=== PATIENT | male | born 1970 | race Two or more races ===

== ENCOUNTER 2022-12-04 13:20 | Inpatient (IN) | payer OTHER ==
[2022-12-04 15:05] VITALS: BMI 19.9
[2022-12-04] MEDS ORDERED: MAG HYDROX/AL HYDROX/SIMETH 30 ML UNIT-DOSE CUP PO PRN (20:36)
[2022-12-04] MEDS ORDERED: MAGNESIUM HYDROX 2400MG/30ML ORAL SUSPENSION 30 ML CUP PO PRN (20:36)
[2022-12-04] MEDS ORDERED: BENZONATATE 200 MG CAPSULE PO PRN (20:36)
[2022-12-04] MEDS ORDERED: LOPERAMIDE HCL 2 MG CAPSULE PO PRN (20:36)
[2022-12-04] MEDS ORDERED: ACETAMINOPHEN 325 MG TABLET (FP) PO PRN (20:36)
[2022-12-04] MEDS ORDERED: NALOXONE HCL (KLOXXADO) 8 MG SPRAY NS PRN (20:36)
[2022-12-04] MEDS ORDERED: BENZOCAINE/MENTHOL (CHLORASEPTIC ) LOZENGE MM PRN (20:36)
[2022-12-04] MEDS ORDERED: guaiFENesin 600 MG TABLET.ER (FP) PO PRN (20:36)
[2022-12-04] MEDS ORDERED: POLYETHYLENE GLYCOL (HEALTHYLAX) 3350 17 GM PACKET PO PRN (20:36)
[2022-12-04] MEDS ORDERED: NALOXONE HCL 0.4 MG/ML VIAL IM PRN (20:36)
[2022-12-04] MEDS ORDERED: IBUPROFEN 400 MG TABLET (FP) PO PRN (20:36)
[2022-12-04] MEDS: MELATONIN 5 MG TABLETS PO SCH ×3 (21:43→21:49)
[2022-12-04] MEDS: THIAMINE HCL 100 MG TABLET (FP) PO SCH ×2 (21:43→21:49)
[2022-12-04] MEDS ORDERED: TUBERCULIN PPD 5 TU/0.1ML VIAL ID ONE (21:45)
[2022-12-05] MEDS: methaDONE HCL 40 MG DISPERSABLE TABLET PO SCH (07:42)
[2022-12-05] MEDS: PRENATAL VITAMINS W/ FOLIC ACID TABLET (FP) PO SCH (10:39)
[2022-12-05] MEDS: NICOTINE 21 MG/24 HOURS TOPICAL PATCH TD SCH (10:39)
[2022-12-05 11:10] LABS: HEMOGLOBIN 10.7 GM/dL (11.7-16.9); MCH 24.3 pg (25.7-33.7); MCHC 32.4 g/dl (32.0-35.9); MEAN PLT VOLUME 9.7 fl (7.5-11.1); PLATELET COUNT 323 10^3/uL (134-434); RBC 4.41 M/mm3 (4.00-5.60); RDW 16.9 % (11.9-15.9); WHITE BLOOD COUNT 8.8 K/mm3 (4.0-10.0)
[2022-12-05 11:11] LABS: CALCIUM 8.7 mg/dL (8.5-10.1)
[2022-12-05 11:12] LABS: ALBUMIN 3.2 g/dl (3.4-5.0); BLOOD UREA NITROGEN 15.1 mg/dL (7-18)
[2022-12-05 11:15] LABS: CREATININE 0.6 mg/dL (0.55-1.3)
[2022-12-05 11:17] LABS: BILIRUBIN,TOTAL 0.3 mg/dL (0.2-1); TOT PROT 7.7 g/dl (6.4-8.2)
[2022-12-05 11:30] LABS: PH,URINE 5.5 (5.0-8.0); URINE APPEARANCE CLEAR; URINE BILIRUBIN NEGATIVE (NEGATIVE); URINE COLOR YELLOW; URINE GLUCOSE (UA) NEGATIVE (NEGATIVE); URINE KETONE NEGATIVE (NEGATIVE); URINE LEUK ESTERASE NEGATIVE (NEGATIVE); URINE NITRITE NEGATIVE (NEGATIVE); URINE PROTEIN NEGATIVE (NEGATIVE); URINE UROBILINOGEN 0.2 mg/dL (0.2-1.0)
[2022-12-05 13:16] LABS: SYPHILIS W/ RPR CONF NON-REACTIVE (NONREACTIVE)
[2022-12-05] MEDS: MELATONIN 5 MG TABLETS PO SCH (22:02)
[2022-12-05] MEDS: THIAMINE HCL 100 MG TABLET (FP) PO SCH (22:02)
[2022-12-06] MEDS: methaDONE HCL 40 MG DISPERSABLE TABLET PO SCH (06:00)
[2022-12-06] MEDS: NICOTINE 21 MG/24 HOURS TOPICAL PATCH TD SCH (09:37)
[2022-12-06] MEDS: PRENATAL VITAMINS W/ FOLIC ACID TABLET (FP) PO SCH (09:37)
[2022-12-06] MEDS: hydrOXYzine PAMOATE 25 MG CAPSULE (FP) PO PRN (21:06)
[2022-12-06] MEDS: MELATONIN 5 MG TABLETS PO SCH (21:06)
[2022-12-06] MEDS: THIAMINE HCL 100 MG TABLET (FP) PO SCH (21:06)
[2022-12-07] MEDS: methaDONE HCL 40 MG DISPERSABLE TABLET PO SCH (05:50)
[2022-12-07] MEDS: NICOTINE POLACRILEX 2 MG GUM BC PRN (10:12)
[2022-12-07] MEDS: PRENATAL VITAMINS W/ FOLIC ACID TABLET (FP) PO SCH (10:12)
[2022-12-07] MEDS: NICOTINE 21 MG/24 HOURS TOPICAL PATCH TD SCH (10:12)
[2022-12-07] MEDS ORDERED: methaDONE HCL 10 MG TABLET PO ONE (10:55)
[2022-12-07] MEDS: MELATONIN 5 MG TABLETS PO SCH (21:05)
[2022-12-07] MEDS: THIAMINE HCL 100 MG TABLET (FP) PO SCH (21:05)
[2022-12-07] MEDS: hydrOXYzine PAMOATE 25 MG CAPSULE (FP) PO PRN (21:05)
[2022-12-08] MEDS: methaDONE 40 MG, methaDONE 10 MG PO SCH (05:59)
[2022-12-08] MEDS ORDERED: methaDONE HCL 10 MG TABLET PO SCH (06:00)
[2022-12-08] MEDS: NICOTINE POLACRILEX 2 MG GUM BC PRN (09:44)
[2022-12-08] MEDS: NICOTINE 21 MG/24 HOURS TOPICAL PATCH TD SCH (09:45)
[2022-12-08] MEDS: PRENATAL VITAMINS W/ FOLIC ACID TABLET (FP) PO SCH (09:45)
[2022-12-08] MEDS: hydrOXYzine PAMOATE 25 MG CAPSULE (FP) PO PRN (15:56)
[2022-12-08] MEDS: MELATONIN 5 MG TABLETS PO SCH (21:24)
[2022-12-08] MEDS: THIAMINE HCL 100 MG TABLET (FP) PO SCH (21:24)
[2022-12-09] MEDS: methaDONE 40 MG, methaDONE 10 MG PO SCH (06:00)
[2022-12-09] MEDS: PRENATAL VITAMINS W/ FOLIC ACID TABLET (FP) PO SCH (09:43)
[2022-12-09] MEDS: NICOTINE 21 MG/24 HOURS TOPICAL PATCH TD SCH (09:43)
[2022-12-09] MEDS: NICOTINE POLACRILEX 2 MG GUM BC PRN (09:45)
[2022-12-09] MEDS: hydrOXYzine PAMOATE 25 MG CAPSULE (FP) PO PRN (19:26)
[2022-12-09] MEDS: MELATONIN 5 MG TABLETS PO SCH (21:10)
[2022-12-09] MEDS: THIAMINE HCL 100 MG TABLET (FP) PO SCH (21:10)
[2022-12-10] MEDS ORDERED: methaDONE HCL 40 MG DISPERSABLE TABLET PO SCH (06:00)
[2022-12-10] MEDS: methaDONE 40 MG, methaDONE 20 MG PO SCH (06:07)
[2022-12-10] MEDS: PRENATAL VITAMINS W/ FOLIC ACID TABLET (FP) PO SCH (10:31)
[2022-12-10] MEDS: NICOTINE 21 MG/24 HOURS TOPICAL PATCH TD SCH (10:31)
[2022-12-10] MEDS: NICOTINE POLACRILEX 2 MG GUM BC PRN (10:32)
[2022-12-10] MEDS: hydrOXYzine PAMOATE 25 MG CAPSULE (FP) PO PRN ×2 (12:10→21:00)
[2022-12-10] MEDS: THIAMINE HCL 100 MG TABLET (FP) PO SCH (21:00)
[2022-12-10] MEDS: MELATONIN 5 MG TABLETS PO SCH (21:00)
[2022-12-11] MEDS: methaDONE 40 MG, methaDONE 20 MG PO SCH (05:55)
[2022-12-11] MEDS: hydrOXYzine PAMOATE 25 MG CAPSULE (FP) PO PRN (05:56)
[2022-12-11] MEDS: PRENATAL VITAMINS W/ FOLIC ACID TABLET (FP) PO SCH (09:45)
[2022-12-11] MEDS: NICOTINE 21 MG/24 HOURS TOPICAL PATCH TD SCH (09:46)
[2022-12-11] MEDS: NICOTINE POLACRILEX 2 MG GUM BC PRN (09:47)
[2022-12-11] MEDS: hydrOXYzine PAMOATE 50 MG CAPSULE (FP) PO PRN (16:29)
[2022-12-11] MEDS: THIAMINE HCL 100 MG TABLET (FP) PO SCH (21:37)
[2022-12-11] MEDS: SUVOREXANT 10 MG TABLET PO PRN (21:37)
[2022-12-12] MEDS: methaDONE 40 MG, methaDONE 20 MG PO SCH (05:57)
[2022-12-12] MEDS: hydrOXYzine PAMOATE 50 MG CAPSULE (FP) PO PRN ×2 (08:27→18:35)
[2022-12-12] MEDS: NICOTINE POLACRILEX 2 MG GUM BC PRN (08:29)
[2022-12-12] MEDS: NICOTINE 21 MG/24 HOURS TOPICAL PATCH TD SCH (10:20)
[2022-12-12] MEDS: PRENATAL VITAMINS W/ FOLIC ACID TABLET (FP) PO SCH (10:20)
[2022-12-12] MEDS: IBUPROFEN 600 MG TABLET (FP) PO PRN ×2 (13:04→19:31)
[2022-12-12] MEDS: THIAMINE HCL 100 MG TABLET (FP) PO SCH (21:16)
[2022-12-12] MEDS: SUVOREXANT 10 MG TABLET PO PRN (21:16)
[2022-12-13] MEDS: hydrOXYzine PAMOATE 50 MG CAPSULE (FP) PO PRN ×3 (06:08→21:06)
[2022-12-13] MEDS: methaDONE 40 MG, methaDONE 20 MG PO SCH (06:09)
[2022-12-13] MEDS: PRENATAL VITAMINS W/ FOLIC ACID TABLET (FP) PO SCH (09:41)
[2022-12-13] MEDS: NICOTINE 21 MG/24 HOURS TOPICAL PATCH TD SCH (09:41)
[2022-12-13] MEDS: NICOTINE POLACRILEX 2 MG GUM BC PRN (09:42)
[2022-12-13] MEDS: THIAMINE HCL 100 MG TABLET (FP) PO SCH (21:05)
[2022-12-13] MEDS: SUVOREXANT 10 MG TABLET PO PRN (21:06)
[2022-12-13] MEDS ORDERED: SUVOREXANT 10 MG TABLET PO PRN (22:00)
[2022-12-14] MEDS: methaDONE 40 MG, methaDONE 20 MG PO SCH (05:55)
[2022-12-14] MEDS: hydrOXYzine PAMOATE 50 MG CAPSULE (FP) PO PRN ×3 (05:57→21:09)
[2022-12-14] MEDS: PRENATAL VITAMINS W/ FOLIC ACID TABLET (FP) PO SCH (10:02)
[2022-12-14] MEDS: NICOTINE 21 MG/24 HOURS TOPICAL PATCH TD SCH (10:02)
[2022-12-14] MEDS: NICOTINE POLACRILEX 2 MG GUM BC PRN (10:02)
[2022-12-14] MEDS: SUVOREXANT 10 MG TABLET PO PRN (21:08)
[2022-12-14] MEDS: THIAMINE HCL 100 MG TABLET (FP) PO SCH (21:09)
[2022-12-15] MEDS: methaDONE 40 MG, methaDONE 20 MG PO SCH (05:58)
[2022-12-15] MEDS: hydrOXYzine PAMOATE 50 MG CAPSULE (FP) PO PRN ×2 (07:19→16:53)
[2022-12-15] MEDS: NICOTINE 21 MG/24 HOURS TOPICAL PATCH TD SCH (09:49)
[2022-12-15] MEDS: PRENATAL VITAMINS W/ FOLIC ACID TABLET (FP) PO SCH (09:49)
[2022-12-15] MEDS: NICOTINE POLACRILEX 2 MG GUM BC PRN (09:49)
[2022-12-15] MEDS: THIAMINE HCL 100 MG TABLET (FP) PO SCH (21:10)
[2022-12-15] MEDS: SUVOREXANT 10 MG TABLET PO PRN (21:11)
[2022-12-16] MEDS: hydrOXYzine PAMOATE 50 MG CAPSULE (FP) PO PRN ×3 (05:58→21:43)
[2022-12-16] MEDS: methaDONE 40 MG, methaDONE 20 MG PO SCH (05:58)
[2022-12-16] MEDS: NICOTINE 21 MG/24 HOURS TOPICAL PATCH TD SCH (09:59)
[2022-12-16] MEDS: PRENATAL VITAMINS W/ FOLIC ACID TABLET (FP) PO SCH (09:59)
[2022-12-16] MEDS: NICOTINE POLACRILEX 2 MG GUM BC PRN (10:00)
[2022-12-16] MEDS: THIAMINE HCL 100 MG TABLET (FP) PO SCH (21:06)
[2022-12-16] MEDS: SUVOREXANT 10 MG TABLET PO PRN (21:06)
[2022-12-17] MEDS: methaDONE 40 MG, methaDONE 30 MG PO SCH (05:58)
[2022-12-17] MEDS: hydrOXYzine PAMOATE 50 MG CAPSULE (FP) PO PRN ×3 (05:59→22:01)
[2022-12-17] MEDS ORDERED: methaDONE HCL 10 MG TABLET PO SCH (06:00)
[2022-12-17] MEDS: NICOTINE 21 MG/24 HOURS TOPICAL PATCH TD SCH (09:40)
[2022-12-17] MEDS: PRENATAL VITAMINS W/ FOLIC ACID TABLET (FP) PO SCH (09:40)
[2022-12-17] MEDS: NICOTINE POLACRILEX 2 MG GUM BC PRN (09:40)
[2022-12-17] MEDS ORDERED: SUVOREXANT 10 MG TABLET PO PRN (22:00)
[2022-12-17] MEDS: THIAMINE HCL 100 MG TABLET (FP) PO SCH (22:00)
[2022-12-17] MEDS: SUVOREXANT 15 MG TABLET PO PRN (22:00)
[2022-12-18] MEDS: methaDONE 40 MG, methaDONE 30 MG PO SCH (06:02)
[2022-12-18] MEDS: hydrOXYzine PAMOATE 50 MG CAPSULE (FP) PO PRN ×3 (06:03→23:10)
[2022-12-18] MEDS: NICOTINE 21 MG/24 HOURS TOPICAL PATCH TD SCH (10:14)
[2022-12-18] MEDS: PRENATAL VITAMINS W/ FOLIC ACID TABLET (FP) PO SCH (10:14)
[2022-12-18] MEDS: NICOTINE POLACRILEX 2 MG GUM BC PRN (10:15)
[2022-12-18] MEDS: SUVOREXANT 15 MG TABLET PO PRN (21:04)
[2022-12-18] MEDS: THIAMINE HCL 100 MG TABLET (FP) PO SCH (21:04)
[2022-12-19] MEDS: hydrOXYzine PAMOATE 50 MG CAPSULE (FP) PO PRN ×3 (05:42→21:20)
[2022-12-19] MEDS: methaDONE 40 MG, methaDONE 30 MG PO SCH (05:42)
[2022-12-19] MEDS: NICOTINE 21 MG/24 HOURS TOPICAL PATCH TD SCH (09:50)
[2022-12-19] MEDS: PRENATAL VITAMINS W/ FOLIC ACID TABLET (FP) PO SCH (09:50)
[2022-12-19] MEDS: NICOTINE POLACRILEX 2 MG GUM BC PRN (09:51)
[2022-12-19] MEDS: THIAMINE HCL 100 MG TABLET (FP) PO SCH (21:19)
[2022-12-19] MEDS: SUVOREXANT 15 MG TABLET PO PRN (21:20)
[2022-12-20] MEDS: methaDONE 40 MG, methaDONE 30 MG PO SCH (06:17)
[2022-12-20] MEDS: hydrOXYzine PAMOATE 50 MG CAPSULE (FP) PO PRN ×3 (06:18→21:59)
[2022-12-20] MEDS: PRENATAL VITAMINS W/ FOLIC ACID TABLET (FP) PO SCH (10:13)
[2022-12-20] MEDS: NICOTINE 21 MG/24 HOURS TOPICAL PATCH TD SCH (10:13)
[2022-12-20] MEDS: NICOTINE POLACRILEX 2 MG GUM BC PRN (10:13)
[2022-12-20] MEDS: SUVOREXANT 15 MG TABLET PO PRN (21:06)
[2022-12-20] MEDS: THIAMINE HCL 100 MG TABLET (FP) PO SCH (21:06)
[2022-12-21] MEDS: methaDONE 40 MG, methaDONE 30 MG PO SCH (06:21)
[2022-12-21] MEDS: hydrOXYzine PAMOATE 50 MG CAPSULE (FP) PO PRN ×3 (06:23→21:32)
[2022-12-21] MEDS: PRENATAL VITAMINS W/ FOLIC ACID TABLET (FP) PO SCH (09:53)
[2022-12-21] MEDS: NICOTINE 21 MG/24 HOURS TOPICAL PATCH TD SCH (09:53)
[2022-12-21] MEDS: THIAMINE HCL 100 MG TABLET (FP) PO SCH (21:31)
[2022-12-21] MEDS: SUVOREXANT 15 MG TABLET PO PRN (22:41)
[2022-12-22] MEDS: methaDONE 40 MG, methaDONE 30 MG PO SCH (06:16)
[2022-12-22] MEDS: hydrOXYzine PAMOATE 50 MG CAPSULE (FP) PO PRN ×3 (06:17→23:14)
[2022-12-22] MEDS: NICOTINE 21 MG/24 HOURS TOPICAL PATCH TD SCH (09:38)
[2022-12-22] MEDS: PRENATAL VITAMINS W/ FOLIC ACID TABLET (FP) PO SCH (09:38)
[2022-12-22] MEDS: NICOTINE POLACRILEX 2 MG GUM BC PRN (09:39)
[2022-12-22] MEDS: THIAMINE HCL 100 MG TABLET (FP) PO SCH (21:12)
[2022-12-22] MEDS: SUVOREXANT 15 MG TABLET PO PRN (21:12)
[2022-12-23] MEDS: hydrOXYzine PAMOATE 50 MG CAPSULE (FP) PO PRN ×3 (05:54→22:22)
[2022-12-23] MEDS: methaDONE 40 MG, methaDONE 30 MG PO SCH (05:54)
[2022-12-23] MEDS: NICOTINE POLACRILEX 2 MG GUM BC PRN (09:35)
[2022-12-23] MEDS: NICOTINE 21 MG/24 HOURS TOPICAL PATCH TD SCH (09:35)
[2022-12-23] MEDS: PRENATAL VITAMINS W/ FOLIC ACID TABLET (FP) PO SCH (09:35)
[2022-12-23] MEDS: THIAMINE HCL 100 MG TABLET (FP) PO SCH (21:15)
[2022-12-23] MEDS: SUVOREXANT 15 MG TABLET PO PRN (21:16)
[2022-12-24] MEDS: hydrOXYzine PAMOATE 50 MG CAPSULE (FP) PO PRN ×3 (06:06→22:37)
[2022-12-24] MEDS: methaDONE 40 MG, methaDONE 30 MG PO SCH (06:06)
[2022-12-24] MEDS: NICOTINE 21 MG/24 HOURS TOPICAL PATCH TD SCH (10:37)
[2022-12-24] MEDS: PRENATAL VITAMINS W/ FOLIC ACID TABLET (FP) PO SCH (10:37)
[2022-12-24] MEDS: NICOTINE POLACRILEX 2 MG GUM BC PRN (10:38)
[2022-12-24] MEDS: THIAMINE HCL 100 MG TABLET (FP) PO SCH (21:34)
[2022-12-24] MEDS: QUEtiapine FUMARATE 50 MG TABLET PO PRN (21:34)
[2022-12-25] MEDS: methaDONE 40 MG, methaDONE 30 MG PO SCH (06:21)
[2022-12-25] MEDS: hydrOXYzine PAMOATE 50 MG CAPSULE (FP) PO PRN ×3 (06:22→21:04)
[2022-12-25] MEDS: PRENATAL VITAMINS W/ FOLIC ACID TABLET (FP) PO SCH (09:50)
[2022-12-25] MEDS: NICOTINE 21 MG/24 HOURS TOPICAL PATCH TD SCH (09:50)
[2022-12-25] MEDS: IBUPROFEN 600 MG TABLET (FP) PO PRN (09:52)
[2022-12-25] MEDS: THIAMINE HCL 100 MG TABLET (FP) PO SCH (21:03)
[2022-12-25] MEDS: QUEtiapine FUMARATE 50 MG TABLET PO PRN (21:04)
[2022-12-26] MEDS: methaDONE 40 MG, methaDONE 30 MG PO SCH (06:03)
[2022-12-26] MEDS: hydrOXYzine PAMOATE 50 MG CAPSULE (FP) PO PRN ×3 (06:03→21:06)
[2022-12-26] MEDS: PRENATAL VITAMINS W/ FOLIC ACID TABLET (FP) PO SCH (10:17)
[2022-12-26] MEDS: NICOTINE 21 MG/24 HOURS TOPICAL PATCH TD SCH (10:17)
[2022-12-26] MEDS: NICOTINE POLACRILEX 2 MG GUM BC PRN (10:17)
[2022-12-26] MEDS: THIAMINE HCL 100 MG TABLET (FP) PO SCH (21:05)
[2022-12-26] MEDS: QUEtiapine FUMARATE 50 MG TABLET PO PRN (21:06)
[2022-12-27] MEDS: methaDONE 40 MG, methaDONE 30 MG PO SCH (06:19)
[2022-12-27] MEDS: hydrOXYzine PAMOATE 50 MG CAPSULE (FP) PO PRN ×3 (06:20→21:25)
[2022-12-27] MEDS: PRENATAL VITAMINS W/ FOLIC ACID TABLET (FP) PO SCH (09:34)
[2022-12-27] MEDS: NICOTINE 21 MG/24 HOURS TOPICAL PATCH TD SCH (09:34)
[2022-12-27] MEDS: IBUPROFEN 600 MG TABLET (FP) PO PRN (13:18)
[2022-12-27] MEDS: THIAMINE HCL 100 MG TABLET (FP) PO SCH (21:24)
[2022-12-27] MEDS: QUEtiapine FUMARATE 50 MG TABLET PO PRN (21:24)
[2022-12-28] MEDS: methaDONE 40 MG, methaDONE 30 MG PO SCH (06:32)
[2022-12-28] MEDS: hydrOXYzine PAMOATE 50 MG CAPSULE (FP) PO PRN ×3 (06:34→21:37)
[2022-12-28] MEDS: NICOTINE 21 MG/24 HOURS TOPICAL PATCH TD SCH (10:14)
[2022-12-28] MEDS: PRENATAL VITAMINS W/ FOLIC ACID TABLET (FP) PO SCH (10:14)
[2022-12-28] MEDS: NICOTINE POLACRILEX 2 MG GUM BC PRN (10:15)
[2022-12-28 11:48] LABS: CALCIUM 8.9 mg/dL (8.5-10.1)
[2022-12-28 11:49] LABS: BLOOD UREA NITROGEN 17.6 mg/dL (7-18)
[2022-12-28 11:52] LABS: CREATININE 0.7 mg/dL (0.55-1.3)
[2022-12-28] MEDS: THIAMINE HCL 100 MG TABLET (FP) PO SCH (21:37)
[2022-12-28] MEDS: QUEtiapine FUMARATE 50 MG TABLET PO PRN (21:37)
[2022-12-29] MEDS: methaDONE 40 MG, methaDONE 30 MG PO SCH (06:32)
[2022-12-29] MEDS: hydrOXYzine PAMOATE 50 MG CAPSULE (FP) PO PRN ×3 (06:35→21:28)
[2022-12-29] MEDS: NICOTINE POLACRILEX 2 MG GUM BC PRN (09:47)
[2022-12-29] MEDS: PRENATAL VITAMINS W/ FOLIC ACID TABLET (FP) PO SCH (09:47)
[2022-12-29] MEDS: NICOTINE 21 MG/24 HOURS TOPICAL PATCH TD SCH (09:47)
[2022-12-29] MEDS: THIAMINE HCL 100 MG TABLET (FP) PO SCH (21:28)
[2022-12-29] MEDS: SUVOREXANT 15 MG TABLET PO PRN (21:29)
[2022-12-30] MEDS: hydrOXYzine PAMOATE 50 MG CAPSULE (FP) PO PRN ×3 (06:25→21:09)
[2022-12-30] MEDS: methaDONE 40 MG, methaDONE 30 MG PO SCH (06:25)
[2022-12-30 07:14] VITALS: RESP 18
[2022-12-30] MEDS: PRENATAL VITAMINS W/ FOLIC ACID TABLET (FP) PO SCH (10:15)
[2022-12-30] MEDS: NICOTINE 21 MG/24 HOURS TOPICAL PATCH TD SCH (10:15)
[2022-12-30] MEDS: THIAMINE HCL 100 MG TABLET (FP) PO SCH (21:09)
[2022-12-30] MEDS: SUVOREXANT 15 MG TABLET PO PRN (21:09)
[2022-12-31 06:26] VITALS: BP 108/64; PULSE 70; TEMP 97.7
[2022-12-31] MEDS: hydrOXYzine PAMOATE 50 MG CAPSULE (FP) PO PRN (06:26)
[2022-12-31] MEDS: methaDONE 40 MG, methaDONE 30 MG PO SCH (06:26)
[2022-12-31] MEDS: NICOTINE 21 MG/24 HOURS TOPICAL PATCH TD SCH (09:08)
[2022-12-31] MEDS: PRENATAL VITAMINS W/ FOLIC ACID TABLET (FP) PO SCH (09:08)
== END 2022-12-31 09:10 | disposition home or self-care (01) | DRG 772 ==
LOC: YASAS 13:20 → Y3W 20:46
PROVIDERS: ADMIT Allergy & Immunology; ATTEND Psychiatry & Neurology Pain Medicine
PROC: HZ42ZZZ Group Counseling for Substance Abuse Treatment, Cognitive-Behavioral (ICD-10-PCS; principal; 2022-12-04)
DX: F14.20 Cocaine dependence, uncomplicated (principal); F11.20 Opioid dependence, uncomplicated; F12.20 Cannabis dependence, uncomplicated; F17.210 Nicotine dependence, cigarettes, uncomplicated; F19.282 Other psychoactive substance dependence with psychoactive substance-induced sleep disorder; F19.280 Other psychoactive substance dependence with psychoactive substance-induced anxiety disorder; F19.24 Other psychoactive substance dependence with psychoactive substance-induced mood disorder; B18.2 Chronic viral hepatitis C; M54.50 Low back pain, unspecified; G89.29 Other chronic pain; R60.0 Localized edema; Z99.89 Dependence on other enabling machines and devices
CPT/HCPCS: 36415; 80048; 80053; 81003; 85027; 86780; 86803; 87522; 87811; 93005; 93010; C9803-CS; U0003; U0005

== ENCOUNTER 2023-08-10 17:49 | Inpatient (IN) | payer OTHER ==
[2023-08-10 18:33] VITALS: BMI 18.9
[2023-08-10] MEDS ORDERED: MAGNESIUM HYDROX 2400MG/30ML ORAL SUSPENSION 30 ML CUP PO PRN (20:09)
[2023-08-10] MEDS ORDERED: COLLOIDAL OATMEAL 1 BAR EACH TP PRN (20:09)
[2023-08-10] MEDS ORDERED: LOPERAMIDE HCL 2 MG CAPSULE PO PRN (20:09)
[2023-08-10] MEDS ORDERED: guaiFENesin 600 MG TABLET.ER (FP) PO PRN (20:09)
[2023-08-10] MEDS ORDERED: NALOXONE HCL (KLOXXADO) 8 MG SPRAY NS PRN (20:09)
[2023-08-10] MEDS ORDERED: AMMONIUM LACTATE 12% LOTION 225 GM BOTTLE TP PRN (20:09)
[2023-08-10] MEDS ORDERED: MAG HYDROX/AL HYDROX/SIMETH 30 ML UNIT-DOSE CUP PO PRN (20:09)
[2023-08-10] MEDS ORDERED: POLYETHYLENE GLYCOL (HEALTHYLAX) 3350 17 GM PACKET PO PRN (20:09)
[2023-08-10] MEDS ORDERED: NALOXONE HCL 0.4 MG/ML VIAL IM PRN (20:09)
[2023-08-10] MEDS ORDERED: IBUPROFEN 400 MG TABLET (FP) PO PRN (20:09)
[2023-08-10] MEDS ORDERED: ACETAMINOPHEN 325 MG TABLET (FP) PO PRN (20:09)
[2023-08-10] MEDS ORDERED: BENZOCAINE/MENTHOL (CHLORASEPTIC ) LOZENGE MM PRN (20:09)
[2023-08-10] MEDS ORDERED: BENZONATATE 200 MG CAPSULE PO PRN (20:09)
[2023-08-11] MEDS: MELATONIN 5 MG TABLETS PO SCH ×2 (00:05→21:14)
[2023-08-11] MEDS: THIAMINE HCL 100 MG TABLET (FP) PO SCH ×2 (00:05→21:14)
[2023-08-11] MEDS ORDERED: ONDANSETRON *ODT* 4 MG TABLET SL ONE (07:21)
[2023-08-11] MEDS ORDERED: methaDONE HCL 10 MG TABLET PO SCH (09:00)
[2023-08-11] MEDS: NICOTINE 21 MG/24 HOURS TOPICAL PATCH TD SCH (10:30)
[2023-08-11] MEDS: PRENATAL VITAMINS W/ FOLIC ACID TABLET (FP) PO SCH (10:30)
[2023-08-11 13:30] LABS: URINE APPEARANCE CLEAR; URINE BILIRUBIN NEGATIVE (NEGATIVE); URINE COLOR YELLOW; URINE GLUCOSE (UA) NEGATIVE (NEGATIVE); URINE KETONE NEGATIVE (NEGATIVE); URINE LEUK ESTERASE NEGATIVE (NEGATIVE); URINE NITRITE NEGATIVE (NEGATIVE); URINE PROTEIN NEGATIVE (NEGATIVE)
[2023-08-12] MEDS: PRENATAL VITAMINS W/ FOLIC ACID TABLET (FP) PO SCH (10:41)
[2023-08-12] MEDS: NICOTINE 21 MG/24 HOURS TOPICAL PATCH TD SCH (10:41)
[2023-08-12 16:32] LABS: BASO % 0.3 % (0-2.0); EOS % 2.4 % (0-4.5); HEMATOCRIT 37.7 % (35.4-49); HEMOGLOBIN 12.4 GM/dL (11.7-16.9); LYMPH % 18.6 % (8-40); MCH 25.5 pg (25.7-33.7); MEAN CELL VOLUME 77.3 fl (80-96); MONO % 6.8 % (3.8-10.2); NEUT % 71.9 % (42.8-82.8); PLATELET COUNT 275 10^3/uL (134-434); RBC 4.88 M/mm3 (4.00-5.60); RDW 15.3 % (11.9-15.9)
[2023-08-12 16:33] LABS: POTASSIUM 4.2 mmol/L (3.5-5.1)
[2023-08-12 16:36] LABS: CALCIUM 8.9 mg/dL (8.5-10.1)
[2023-08-12 16:37] LABS: ALBUMIN 3.1 g/dl (3.4-5.0); BLOOD UREA NITROGEN 8.6 mg/dL (7-18)
[2023-08-12 16:40] LABS: CREATININE 0.7 mg/dL (0.55-1.3)
[2023-08-12 16:41] LABS: BILIRUBIN,TOTAL 0.6 mg/dL (0.2-1)
[2023-08-12] MEDS: THIAMINE HCL 100 MG TABLET (FP) PO SCH (21:18)
[2023-08-12] MEDS: MELATONIN 5 MG TABLETS PO SCH (21:18)
[2023-08-12] MEDS: QUEtiapine FUMARATE 100 MG TABLET (FP) PO SCH (21:18)
[2023-08-13] MEDS: NICOTINE 21 MG/24 HOURS TOPICAL PATCH TD SCH (10:05)
[2023-08-13] MEDS: PRENATAL VITAMINS W/ FOLIC ACID TABLET (FP) PO SCH (10:05)
[2023-08-13] MEDS: IBUPROFEN 600 MG TABLET (FP) PO PRN (13:05)
[2023-08-13] MEDS: MELATONIN 5 MG TABLETS PO SCH (21:06)
[2023-08-13] MEDS: QUEtiapine FUMARATE 100 MG TABLET (FP) PO SCH (21:06)
[2023-08-13] MEDS: THIAMINE HCL 100 MG TABLET (FP) PO SCH (21:06)
[2023-08-14] MEDS: NICOTINE 21 MG/24 HOURS TOPICAL PATCH TD SCH (10:07)
[2023-08-14] MEDS: PRENATAL VITAMINS W/ FOLIC ACID TABLET (FP) PO SCH (10:07)
[2023-08-14] MEDS: IBUPROFEN 600 MG TABLET (FP) PO PRN (13:15)
[2023-08-14] MEDS: QUEtiapine FUMARATE 100 MG TABLET (FP) PO SCH (21:05)
[2023-08-14] MEDS: MELATONIN 5 MG TABLETS PO SCH (21:05)
[2023-08-14] MEDS: THIAMINE HCL 100 MG TABLET (FP) PO SCH (21:05)
[2023-08-15] MEDS: PRENATAL VITAMINS W/ FOLIC ACID TABLET (FP) PO SCH (10:09)
[2023-08-15] MEDS: NICOTINE 21 MG/24 HOURS TOPICAL PATCH TD SCH (10:09)
[2023-08-15] MEDS: MELATONIN 5 MG TABLETS PO SCH (21:14)
[2023-08-15] MEDS: THIAMINE HCL 100 MG TABLET (FP) PO SCH (21:15)
[2023-08-15] MEDS: QUEtiapine FUMARATE 100 MG TABLET (FP) PO SCH (21:15)
[2023-08-15] MEDS: NICOTINE POLACRILEX 2 MG GUM BUC PRN (21:16)
[2023-08-16] MEDS: PRENATAL VITAMINS W/ FOLIC ACID TABLET (FP) PO SCH (10:04)
[2023-08-16] MEDS: NICOTINE 21 MG/24 HOURS TOPICAL PATCH TD SCH (10:04)
[2023-08-16] MEDS: hydrOXYzine PAMOATE 25 MG CAPSULE (FP) PO PRN ×2 (10:05→21:13)
[2023-08-16] MEDS: THIAMINE HCL 100 MG TABLET (FP) PO SCH (21:13)
[2023-08-16] MEDS: QUEtiapine FUMARATE 100 MG TABLET (FP) PO SCH (21:13)
[2023-08-16] MEDS: MELATONIN 5 MG TABLETS PO SCH (21:13)
[2023-08-17] MEDS: hydrOXYzine PAMOATE 25 MG CAPSULE (FP) PO PRN ×2 (05:56→21:20)
[2023-08-17] MEDS: PRENATAL VITAMINS W/ FOLIC ACID TABLET (FP) PO SCH (10:12)
[2023-08-17] MEDS: NICOTINE 21 MG/24 HOURS TOPICAL PATCH TD SCH (10:12)
[2023-08-17] MEDS: THIAMINE HCL 100 MG TABLET (FP) PO SCH (21:19)
[2023-08-17] MEDS: MELATONIN 5 MG TABLETS PO SCH (21:19)
[2023-08-17] MEDS: QUEtiapine FUMARATE 100 MG TABLET (FP) PO SCH (21:20)
[2023-08-18] MEDS: hydrOXYzine PAMOATE 25 MG CAPSULE (FP) PO PRN ×2 (06:25→21:09)
[2023-08-18] MEDS: PRENATAL VITAMINS W/ FOLIC ACID TABLET (FP) PO SCH (10:23)
[2023-08-18] MEDS: NICOTINE 21 MG/24 HOURS TOPICAL PATCH TD SCH (10:23)
[2023-08-18] MEDS: MELATONIN 5 MG TABLETS PO SCH (21:08)
[2023-08-18] MEDS: QUEtiapine FUMARATE 100 MG TABLET (FP) PO SCH (21:08)
[2023-08-18] MEDS: THIAMINE HCL 100 MG TABLET (FP) PO SCH (21:08)
[2023-08-19] MEDS: hydrOXYzine PAMOATE 25 MG CAPSULE (FP) PO PRN ×2 (06:02→21:16)
[2023-08-19] MEDS: NICOTINE POLACRILEX 2 MG GUM BUC PRN (09:48)
[2023-08-19] MEDS: NICOTINE 21 MG/24 HOURS TOPICAL PATCH TD SCH (09:48)
[2023-08-19] MEDS: PRENATAL VITAMINS W/ FOLIC ACID TABLET (FP) PO SCH (09:48)
[2023-08-19] MEDS: QUEtiapine FUMARATE 200 MG TABLET PO SCH (21:16)
[2023-08-19] MEDS: THIAMINE HCL 100 MG TABLET (FP) PO SCH (21:16)
[2023-08-19] MEDS: MELATONIN 5 MG TABLETS PO SCH (21:16)
[2023-08-20] MEDS: hydrOXYzine PAMOATE 25 MG CAPSULE (FP) PO PRN ×2 (06:32→21:11)
[2023-08-20] MEDS: PRENATAL VITAMINS W/ FOLIC ACID TABLET (FP) PO SCH (09:36)
[2023-08-20] MEDS: NICOTINE 21 MG/24 HOURS TOPICAL PATCH TD SCH (09:37)
[2023-08-20] MEDS: QUEtiapine FUMARATE 200 MG TABLET PO SCH (21:11)
[2023-08-20] MEDS: MELATONIN 5 MG TABLETS PO SCH (21:11)
[2023-08-20] MEDS: THIAMINE HCL 100 MG TABLET (FP) PO SCH (21:11)
[2023-08-21] MEDS: hydrOXYzine PAMOATE 25 MG CAPSULE (FP) PO PRN ×2 (06:00→21:15)
[2023-08-21] MEDS: NICOTINE 21 MG/24 HOURS TOPICAL PATCH TD SCH (10:06)
[2023-08-21] MEDS: PRENATAL VITAMINS W/ FOLIC ACID TABLET (FP) PO SCH (10:07)
[2023-08-21] MEDS: QUEtiapine FUMARATE 200 MG TABLET PO SCH (21:15)
[2023-08-21] MEDS: THIAMINE HCL 100 MG TABLET (FP) PO SCH (21:15)
[2023-08-21] MEDS: MELATONIN 5 MG TABLETS PO SCH (21:15)
[2023-08-22] MEDS: hydrOXYzine PAMOATE 25 MG CAPSULE (FP) PO PRN ×2 (06:06→21:01)
[2023-08-22] MEDS: PRENATAL VITAMINS W/ FOLIC ACID TABLET (FP) PO SCH (09:51)
[2023-08-22] MEDS: NICOTINE 21 MG/24 HOURS TOPICAL PATCH TD SCH (09:52)
[2023-08-22] MEDS: THIAMINE HCL 100 MG TABLET (FP) PO SCH (21:01)
[2023-08-22] MEDS: QUEtiapine FUMARATE 200 MG TABLET PO SCH (21:01)
[2023-08-22] MEDS: MELATONIN 5 MG TABLETS PO SCH (21:01)
[2023-08-23] MEDS: hydrOXYzine PAMOATE 25 MG CAPSULE (FP) PO PRN ×2 (06:06→21:27)
[2023-08-23] MEDS: NICOTINE 21 MG/24 HOURS TOPICAL PATCH TD SCH (10:44)
[2023-08-23] MEDS: PRENATAL VITAMINS W/ FOLIC ACID TABLET (FP) PO SCH (10:44)
[2023-08-23] MEDS: QUEtiapine FUMARATE 200 MG TABLET PO SCH (21:26)
[2023-08-23] MEDS: SUVOREXANT 10 MG TABLET PO PRN (21:26)
[2023-08-23] MEDS: THIAMINE HCL 100 MG TABLET (FP) PO SCH (21:26)
[2023-08-24] MEDS: hydrOXYzine PAMOATE 25 MG CAPSULE (FP) PO PRN ×2 (06:17→21:21)
[2023-08-24] MEDS: NICOTINE 21 MG/24 HOURS TOPICAL PATCH TD SCH ×2 (10:35→10:44)
[2023-08-24] MEDS: PRENATAL VITAMINS W/ FOLIC ACID TABLET (FP) PO SCH ×2 (10:36→10:44)
[2023-08-24] MEDS: THIAMINE HCL 100 MG TABLET (FP) PO SCH (21:21)
[2023-08-24] MEDS: SUVOREXANT 10 MG TABLET PO PRN (21:21)
[2023-08-24] MEDS: QUEtiapine FUMARATE 200 MG TABLET PO SCH (21:21)
[2023-08-25] MEDS: hydrOXYzine PAMOATE 25 MG CAPSULE (FP) PO PRN ×2 (06:04→21:14)
[2023-08-25] MEDS: PRENATAL VITAMINS W/ FOLIC ACID TABLET (FP) PO SCH (10:05)
[2023-08-25] MEDS: NICOTINE 21 MG/24 HOURS TOPICAL PATCH TD SCH (10:05)
[2023-08-25] MEDS: SUVOREXANT 10 MG TABLET PO PRN (21:13)
[2023-08-25] MEDS: THIAMINE HCL 100 MG TABLET (FP) PO SCH (21:14)
[2023-08-25] MEDS: QUEtiapine FUMARATE 200 MG TABLET PO SCH (21:14)
[2023-08-26] MEDS: hydrOXYzine PAMOATE 25 MG CAPSULE (FP) PO PRN ×2 (05:53→21:04)
[2023-08-26] MEDS: PRENATAL VITAMINS W/ FOLIC ACID TABLET (FP) PO SCH (10:09)
[2023-08-26] MEDS: NICOTINE 21 MG/24 HOURS TOPICAL PATCH TD SCH (10:10)
[2023-08-26] MEDS: THIAMINE HCL 100 MG TABLET (FP) PO SCH (21:03)
[2023-08-26] MEDS: SUVOREXANT 10 MG TABLET PO PRN (21:03)
[2023-08-26] MEDS: QUEtiapine FUMARATE 200 MG TABLET PO SCH (21:04)
[2023-08-27] MEDS: hydrOXYzine PAMOATE 25 MG CAPSULE (FP) PO PRN ×2 (06:11→21:17)
[2023-08-27] MEDS: NICOTINE 21 MG/24 HOURS TOPICAL PATCH TD SCH (10:08)
[2023-08-27] MEDS: PRENATAL VITAMINS W/ FOLIC ACID TABLET (FP) PO SCH (10:08)
[2023-08-27] MEDS: QUEtiapine FUMARATE 200 MG TABLET PO SCH (21:17)
[2023-08-27] MEDS: THIAMINE HCL 100 MG TABLET (FP) PO SCH (21:17)
[2023-08-27] MEDS: SUVOREXANT 10 MG TABLET PO PRN (21:18)
[2023-08-28] MEDS: PRENATAL VITAMINS W/ FOLIC ACID TABLET (FP) PO SCH (10:13)
[2023-08-28] MEDS: NICOTINE 21 MG/24 HOURS TOPICAL PATCH TD SCH (10:13)
[2023-08-28] MEDS: hydrOXYzine PAMOATE 25 MG CAPSULE (FP) PO PRN ×2 (12:16→21:27)
[2023-08-28] MEDS: THIAMINE HCL 100 MG TABLET (FP) PO SCH (21:27)
[2023-08-28] MEDS: QUEtiapine FUMARATE 200 MG TABLET PO SCH (21:27)
[2023-08-28] MEDS: SUVOREXANT 10 MG TABLET PO PRN (21:27)
[2023-08-28] MEDS ORDERED: SUVOREXANT 10 MG TABLET PO PRN (22:00)
[2023-08-29] MEDS: PRENATAL VITAMINS W/ FOLIC ACID TABLET (FP) PO SCH (09:35)
[2023-08-29] MEDS: NICOTINE 21 MG/24 HOURS TOPICAL PATCH TD SCH (09:36)
[2023-08-29] MEDS: hydrOXYzine PAMOATE 25 MG CAPSULE (FP) PO PRN ×2 (14:23→21:30)
[2023-08-29] MEDS: SUVOREXANT 10 MG TABLET PO PRN (21:29)
[2023-08-29] MEDS: THIAMINE HCL 100 MG TABLET (FP) PO SCH (21:29)
[2023-08-29] MEDS: QUEtiapine FUMARATE 200 MG TABLET PO SCH (21:30)
[2023-08-30] MEDS: hydrOXYzine PAMOATE 25 MG CAPSULE (FP) PO PRN ×2 (06:29→21:03)
[2023-08-30] MEDS: NICOTINE 21 MG/24 HOURS TOPICAL PATCH TD SCH (10:12)
[2023-08-30] MEDS: PRENATAL VITAMINS W/ FOLIC ACID TABLET (FP) PO SCH (10:12)
[2023-08-30] MEDS: QUEtiapine FUMARATE 200 MG TABLET PO SCH (21:02)
[2023-08-30] MEDS: THIAMINE HCL 100 MG TABLET (FP) PO SCH (21:02)
[2023-08-30] MEDS: SUVOREXANT 10 MG TABLET PO PRN (21:03)
[2023-08-31] MEDS: hydrOXYzine PAMOATE 25 MG CAPSULE (FP) PO PRN ×2 (06:23→21:33)
[2023-08-31] MEDS: NICOTINE 21 MG/24 HOURS TOPICAL PATCH TD SCH (10:16)
[2023-08-31] MEDS: PRENATAL VITAMINS W/ FOLIC ACID TABLET (FP) PO SCH (10:16)
[2023-08-31] MEDS: THIAMINE HCL 100 MG TABLET (FP) PO SCH (21:32)
[2023-08-31] MEDS: QUEtiapine FUMARATE 200 MG TABLET PO SCH (21:33)
[2023-08-31] MEDS: SUVOREXANT 10 MG TABLET PO PRN (21:33)
[2023-09-01] MEDS: hydrOXYzine PAMOATE 25 MG CAPSULE (FP) PO PRN ×2 (06:18→21:11)
[2023-09-01] MEDS: NICOTINE 21 MG/24 HOURS TOPICAL PATCH TD SCH (10:54)
[2023-09-01] MEDS: PRENATAL VITAMINS W/ FOLIC ACID TABLET (FP) PO SCH (10:54)
[2023-09-01] MEDS: SUVOREXANT 10 MG TABLET PO PRN (21:10)
[2023-09-01] MEDS: QUEtiapine FUMARATE 200 MG TABLET PO SCH (21:10)
[2023-09-01] MEDS: THIAMINE HCL 100 MG TABLET (FP) PO SCH (21:11)
[2023-09-02] MEDS: hydrOXYzine PAMOATE 25 MG CAPSULE (FP) PO PRN ×2 (06:43→21:15)
[2023-09-02] MEDS: NICOTINE 21 MG/24 HOURS TOPICAL PATCH TD SCH (09:49)
[2023-09-02] MEDS: PRENATAL VITAMINS W/ FOLIC ACID TABLET (FP) PO SCH (09:49)
[2023-09-02] MEDS: QUEtiapine FUMARATE 200 MG TABLET PO SCH (21:15)
[2023-09-02] MEDS: SUVOREXANT 10 MG TABLET PO PRN (21:15)
[2023-09-02] MEDS: THIAMINE HCL 100 MG TABLET (FP) PO SCH (21:15)
[2023-09-03] MEDS: hydrOXYzine PAMOATE 25 MG CAPSULE (FP) PO PRN ×2 (06:21→21:29)
[2023-09-03] MEDS: PRENATAL VITAMINS W/ FOLIC ACID TABLET (FP) PO SCH (09:48)
[2023-09-03] MEDS: NICOTINE 21 MG/24 HOURS TOPICAL PATCH TD SCH (09:48)
[2023-09-03] MEDS: THIAMINE HCL 100 MG TABLET (FP) PO SCH (21:29)
[2023-09-03] MEDS: QUEtiapine FUMARATE 200 MG TABLET PO SCH (21:29)
[2023-09-03] MEDS: SUVOREXANT 10 MG TABLET PO PRN (21:29)
[2023-09-04] MEDS: hydrOXYzine PAMOATE 25 MG CAPSULE (FP) PO PRN ×2 (06:28→21:02)
[2023-09-04] MEDS: PRENATAL VITAMINS W/ FOLIC ACID TABLET (FP) PO SCH (10:59)
[2023-09-04] MEDS: NICOTINE 21 MG/24 HOURS TOPICAL PATCH TD SCH (10:59)
[2023-09-04] MEDS: THIAMINE HCL 100 MG TABLET (FP) PO SCH (21:02)
[2023-09-04] MEDS: QUEtiapine FUMARATE 200 MG TABLET PO SCH (21:02)
[2023-09-04] MEDS: SUVOREXANT 10 MG TABLET PO PRN (21:03)
[2023-09-05] MEDS: hydrOXYzine PAMOATE 25 MG CAPSULE (FP) PO PRN ×2 (06:32→21:30)
[2023-09-05] MEDS: NICOTINE 21 MG/24 HOURS TOPICAL PATCH TD SCH (09:48)
[2023-09-05] MEDS: PRENATAL VITAMINS W/ FOLIC ACID TABLET (FP) PO SCH (09:48)
[2023-09-05] MEDS: QUEtiapine FUMARATE 200 MG TABLET PO SCH (21:30)
[2023-09-05] MEDS: THIAMINE HCL 100 MG TABLET (FP) PO SCH (21:30)
[2023-09-05] MEDS: SUVOREXANT 10 MG TABLET PO PRN (21:31)
[2023-09-05] MEDS ORDERED: SUVOREXANT 10 MG TABLET PO PRN (22:00)
[2023-09-06] MEDS: hydrOXYzine PAMOATE 25 MG CAPSULE (FP) PO PRN ×2 (05:54→21:29)
[2023-09-06] MEDS: PRENATAL VITAMINS W/ FOLIC ACID TABLET (FP) PO SCH (10:16)
[2023-09-06] MEDS: NICOTINE 21 MG/24 HOURS TOPICAL PATCH TD SCH (10:16)
[2023-09-06] MEDS: QUEtiapine FUMARATE 200 MG TABLET PO SCH (21:30)
[2023-09-06] MEDS: THIAMINE HCL 100 MG TABLET (FP) PO SCH (21:30)
[2023-09-07] MEDS: hydrOXYzine PAMOATE 25 MG CAPSULE (FP) PO PRN ×2 (06:29→21:25)
[2023-09-07] MEDS: PRENATAL VITAMINS W/ FOLIC ACID TABLET (FP) PO SCH (10:09)
[2023-09-07] MEDS: NICOTINE 21 MG/24 HOURS TOPICAL PATCH TD SCH (10:09)
[2023-09-07] MEDS: QUEtiapine FUMARATE 200 MG TABLET PO SCH (21:25)
[2023-09-07] MEDS: THIAMINE HCL 100 MG TABLET (FP) PO SCH (21:25)
[2023-09-07] MEDS: SUVOREXANT 10 MG TABLET PO PRN (21:26)
[2023-09-08] MEDS: hydrOXYzine PAMOATE 25 MG CAPSULE (FP) PO PRN ×2 (06:18→21:03)
[2023-09-08 06:51] VITALS: RESP 16
[2023-09-08] MEDS: PRENATAL VITAMINS W/ FOLIC ACID TABLET (FP) PO SCH (10:07)
[2023-09-08] MEDS: NICOTINE 21 MG/24 HOURS TOPICAL PATCH TD SCH (10:07)
[2023-09-08] MEDS: SUVOREXANT 10 MG TABLET PO PRN (21:02)
[2023-09-08] MEDS: QUEtiapine FUMARATE 200 MG TABLET PO SCH (21:03)
[2023-09-08] MEDS: THIAMINE HCL 100 MG TABLET (FP) PO SCH (21:03)
[2023-09-09] MEDS: hydrOXYzine PAMOATE 25 MG CAPSULE (FP) PO PRN (06:21)
[2023-09-09 06:40] VITALS: BP 107/73; PULSE 70; TEMP 98
[2023-09-09] MEDS: PRENATAL VITAMINS W/ FOLIC ACID TABLET (FP) PO SCH (09:35)
[2023-09-09] MEDS: NICOTINE 21 MG/24 HOURS TOPICAL PATCH TD SCH (09:35)
[2023-09-09] MEDS ORDERED: SUVOREXANT 10 MG TABLET PO PRN (22:00)
== END 2023-09-09 15:20 | disposition home or self-care (01) | DRG 772 ==
LOC: YASAS 17:49 → Y3W 23:52
PROVIDERS: ADMIT Allergy & Immunology; ATTEND Psychiatry & Neurology Pain Medicine
PROC: HZ42ZZZ Group Counseling for Substance Abuse Treatment, Cognitive-Behavioral (ICD-10-PCS; principal; 2023-08-10)
DX: F14.20 Cocaine dependence, uncomplicated (principal); F12.20 Cannabis dependence, uncomplicated; F17.210 Nicotine dependence, cigarettes, uncomplicated; F19.282 Other psychoactive substance dependence with psychoactive substance-induced sleep disorder; F42.4 Excoriation (skin-picking) disorder; F41.9 Anxiety disorder, unspecified; G47.00 Insomnia, unspecified; K04.7 Periapical abscess without sinus; R60.0 Localized edema; R00.1 Bradycardia, unspecified; Z86.11 Personal history of tuberculosis
CPT/HCPCS: 36415; 80053; 81003; 85025; 87635; 93005; 93010; Q0162

== ENCOUNTER 2023-11-10 14:39 | Inpatient (IN) | payer OTHER ==
[2023-11-10 15:27] VITALS: BMI 20.7
[2023-11-10] MEDS ORDERED: ACETAMINOPHEN 325 MG TABLET (FP) PO PRN (20:14)
[2023-11-10] MEDS ORDERED: guaiFENesin 600 MG TABLET.ER (FP) PO PRN (20:14)
[2023-11-10] MEDS ORDERED: P-EPHED 60MG/TRIPROLIDI 2.5MG TABLET PO PRN (20:14)
[2023-11-10] MEDS ORDERED: DOCUSATE SODIUM 100 MG CAPSULE (FP) PO PRN (20:14)
[2023-11-10] MEDS ORDERED: NALOXONE HCL (KLOXXADO) 8 MG SPRAY NS PRN (20:14)
[2023-11-10] MEDS ORDERED: NICOTINE POLACRILEX 2 MG GUM BUC PRN (20:14)
[2023-11-10] MEDS ORDERED: IBUPROFEN 400 MG TABLET (FP) PO PRN (20:14)
[2023-11-10] MEDS ORDERED: NALOXONE HCL 0.4 MG/ML VIAL IM PRN (20:14)
[2023-11-10] MEDS ORDERED: LOPERAMIDE HCL 2 MG CAPSULE PO PRN (20:14)
[2023-11-10] MEDS ORDERED: POLYETHYLENE GLYCOL (HEALTHYLAX) 3350 17 GM PACKET PO PRN (20:14)
[2023-11-10] MEDS ORDERED: BENZONATATE 200 MG CAPSULE PO PRN (20:14)
[2023-11-10] MEDS ORDERED: BENZOCAINE/MENTHOL (CHLORASEPTIC ) LOZENGE MM PRN (20:14)
[2023-11-10] MEDS ORDERED: MAGNESIUM HYDROX 2400MG/30ML ORAL SUSPENSION 30 ML CUP PO PRN (20:14)
[2023-11-10] MEDS ORDERED: MELATONIN 5 MG TABLETS ONE (23:06)
[2023-11-10] MEDS: MELATONIN 5 MG TABLETS PO SCH (23:14)
[2023-11-10] MEDS: THIAMINE HCL 100 MG TABLET (FP) PO SCH (23:14)
[2023-11-11] MEDS ORDERED: methaDONE HCL 10 MG TABLET PO SCH (09:15)
[2023-11-11] MEDS: LIDOCAINE 4% PATCH TP SCH (09:34)
[2023-11-11] MEDS: PRENATAL VITAMINS W/ FOLIC ACID TABLET (FP) PO SCH (09:36)
[2023-11-11 11:50] LABS: CHLORIDE 104 mmol/L (98-107); POTASSIUM 4.2 mmol/L (3.5-5.1); SODIUM 139 mmol/L (136-145)
[2023-11-11 11:51] LABS: HEMATOCRIT 37.5 % (35.4-49); HEMOGLOBIN 12.5 GM/dL (11.7-16.9); MCH 26.8 pg (25.7-33.7); MCHC 33.2 g/dl (32.0-35.9); MEAN CELL VOLUME 80.8 fl (80-96); MEAN PLT VOLUME 8.9 fl (7.5-11.1); PLATELET COUNT 197 10^3/uL (134-434); RBC 4.64 M/mm3 (4.00-5.60); RDW 16.2 % (11.9-15.9); WHITE BLOOD COUNT 6.3 K/mm3 (4.0-10.0)
[2023-11-11 11:56] LABS: CALCIUM 8.8 mg/dL (8.5-10.1)
[2023-11-11 11:57] LABS: ALBUMIN 3.1 g/dl (3.4-5.0); ANION GAP 1 mmol/L (4-13); BLOOD UREA NITROGEN 10.7 mg/dL (7-18); CO2 33 mmol/L (21-32); GLUCOSE,RANDOM 84 mg/dL (74-106)
[2023-11-11 12:00] LABS: CREATININE 0.7 mg/dL (0.55-1.3); SGOT/AST 74 U/L (15-37); SGPT/ALT 128 U/L (13-61)
[2023-11-11 12:01] LABS: BILIRUBIN,TOTAL 0.5 mg/dL (0.2-1); TOT PROT 6.7 g/dl (6.4-8.2)
[2023-11-11 12:27] LABS: ALK PHOS 97 U/L (45-117)
[2023-11-11] MEDS: LIDOCAINE PATCH REMOVAL MC SCH (21:14)
[2023-11-12 11:52] LABS: URINE APPEARANCE CLEAR; URINE BILIRUBIN NEGATIVE (NEGATIVE); URINE COLOR YELLOW; URINE GLUCOSE (UA) NEGATIVE (NEGATIVE); URINE KETONE NEGATIVE (NEGATIVE); URINE LEUK ESTERASE NEGATIVE (NEGATIVE); URINE NITRITE NEGATIVE (NEGATIVE); URINE PROTEIN NEGATIVE (NEGATIVE)
[2023-11-12] MEDS: QUEtiapine FUMARATE 200 MG TABLET PO SCH (21:17)
[2023-11-12] MEDS ORDERED: OLANZapine 10 MG TABLET PO SCH (22:00)
[2023-11-13] MEDS: SERTRALINE HCL 50 MG TABLET (FP) PO SCH (10:14)
[2023-11-15] MEDS: MAG HYDROX/AL HYDROX/SIMETH 30 ML UNIT-DOSE CUP PO PRN (21:09)
[2023-11-17] MEDS: IBUPROFEN 600 MG TABLET (FP) PO PRN (21:07)
[2023-12-07] MEDS: METHOCARBAMOL 500 MG TABLET PO PRN (21:01)
[2023-12-09 07:25] VITALS: BP 100/61; PULSE 63; RESP 18; TEMP 98.1
== END 2023-12-09 11:00 | disposition other institution (70) | DRG 772 ==
LOC: YASAS 14:39 → Y5N 11-11 02:19
PROVIDERS: ADMIT Allergy & Immunology; ATTEND Psychiatry & Neurology Pain Medicine
PROC: HZ42ZZZ Group Counseling for Substance Abuse Treatment, Cognitive-Behavioral (ICD-10-PCS; principal; 2023-11-11)
DX: F11.20 Opioid dependence, uncomplicated (principal); F14.20 Cocaine dependence, uncomplicated; F12.10 Cannabis abuse, uncomplicated; F17.210 Nicotine dependence, cigarettes, uncomplicated; F10.282 Alcohol dependence with alcohol-induced sleep disorder; F42.4 Excoriation (skin-picking) disorder; M54.50 Low back pain, unspecified; G89.29 Other chronic pain; Z91.148 Patient's other noncompliance with medication regimen for other reason; Z59.01 Sheltered homelessness
CPT/HCPCS: 0241U-QW; 36415; 71046-TC-FY; 80053; 80305; 80307; 81003; 85027; 86780